=== PATIENT | female | born 1935 | race Caucasian/White ===

== ENCOUNTER 2017-04-23 08:11 | Outpatient (CLI) | payer MEDICARE, OTHER ==
--- NOTE | 2017-04-24 12:03 | PET ---
PET CT: HISTORY: 82-year-old female with lymphoma. Exam requested for initial staging. 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 TECHNIQUE: PET scanning with CT attenuation correction was performed from the base of the brain through the prox imal thighs following the intravenous administration of 9.7 mCi F18-FDG in the left antecubital fossa . Imaging was performed after an uptake interval of 67 minutes. COMPARISON: None. CORRELATION: None. FINDINGS: There is diffuse increased FDG uptake in the axial skeleton and the spleen. This may either be due to hematopoietic activity or increased hematopoietic activity or lymphomatous infiltration. There is a hypermetabolic 7.0 mm lymph node in the left posterior triangle of the neck with a Q-SUV o f 23. No hypermetabolic lymph nodes are seen in the mediastinum, hilar regions, axilla, abdomen, pelvis, or inguinal regions. No hypermetabolic liver or adrenal lesions are seen. The CT scan used for attenuation correction demonstrates no evidence of pleural effusions or ascites. There is physiologic activity in the GI and tracts. IMPRESSION: 1. Hypermetabolic left posterior triangle lymph node suspicious for viable tumor. 2. Increased uptake in the spleen and skeleton are either due to hematopoiesis or lymphomatous infil tration. MRI of the thoracolumbar spine with and without IV contrast would be helpful. POS: [facility]
== END 2017-04-23 08:12 | disposition home or self-care (01) ==
LOC: PET 08:11
PROVIDERS: ATTEND Internal Medicine Hematology & Oncology
DX: C85.90 Non-Hodgkin lymphoma, unspecified, unspecified site (principal)
CPT/HCPCS: 78815; 80053; 82248; 83615; 84100; 84550; A9552; 36415

== ENCOUNTER 2017-07-03 08:07 | Outpatient (CLI) | payer MEDICARE, OTHER ==
--- NOTE | 2017-07-03 11:26 | PET ---
PET CT: HISTORY: 82-year-old female with lymphoma. Last chemotherapy was on 06/16/17. Exam requested for restaging. TECHNIQUE: PET scanning with CT attenuation correction was performed from the base of the brain through the prox imal thighs following the intravenous administration of 13 mCi F18-FDG in the left antecubital fossa. Imaging was performed after an uptake interval of 53 minutes. COMPARISON: PET CT dated 04/23/17. FINDINGS: There has been interval resolution of dominga hypermetabolism in the left posterior triangle of the nec k. No dominga hypermetabolism seen in neck, chest, axilla, abdomen, pelvis, or inguinal regions (Deauvi lle score 1). No hypermetabolic liver or adrenal lesions are seen. There is increased FDG localization in a new focal mass-like area of consolidation in the anterior as pect of right upper lobe with a SUV of 9 (uptake greater than the liver). Though this is a new area o f uptake, it is unlikely to be related to lymphoma with a Deauville score X. However, if this is foun d to be lymphoma, then the Deauville score would be 5. There is physiologic activity in the GI and tracts, and the visualized portions of the brain. Incr eased activity in the axial skeleton and spleen has resolved. The CT scan used for attenuation correction demonstrates no evidence of pleural effusions or ascites. In addition to the focal area of mass-like consolidation in the right upper lobe, there are patchy n odular infiltrates in the right upper lobe. IMPRESSION: 1. No dominga hypermetabolism on the current exam, with interval resolution since the previous study o f 04/23/17. 2. New abnormal FDG localization in a mass-like area of consolidation in right upper lobe. Please se e above discussion. POS: [facility]
== END 2017-07-03 08:08 | disposition home or self-care (01) ==
LOC: PET 08:07
PROVIDERS: ATTEND Internal Medicine Hematology & Oncology
DX: C85.90 Non-Hodgkin lymphoma, unspecified, unspecified site (principal); R91.8 Other nonspecific abnormal finding of lung field
CPT/HCPCS: 78815; A9552

== ENCOUNTER 2017-09-03 12:29 | Outpatient (CLI) | payer MEDICARE ==
--- NOTE | 2017-09-03 13:16 | RAD ---
PA AND LATERAL CHEST: HISTORY: An 82-year-old female with a history of dyspnea. FINDINGS: Left subclavian catheter injection port. Heart size within normal limits. Increased interstitial an d reticulonodular parenchymal changes in the right upper lobe have more the appearance of old changes . Mild right hemidiaphragm elevation. No confluent pneumonia, overt edema, or pleural effusion. IMPRESSION: 1. No significant acute intrathoracic disease. 2. Minimal bilateral chronic appearing changes. POS: [facility]
== END 2017-09-03 12:30 | disposition home or self-care (01) ==
LOC: RAD 12:29
PROVIDERS: ATTEND Internal Medicine Critical Care Medicine
DX: R06.00 Dyspnea, unspecified (principal)
CPT/HCPCS: 71046

== ENCOUNTER 2017-09-16 10:47 | Outpatient (CLI) | payer MEDICARE ==
--- NOTE | 2017-09-16 15:46 | PET ---
PET SCAN WITH CT ATTENUATION CORRECTION: HISTORY: 82-year-old female with left nasal skin basal cell carcinoma, left temporal superficial basal cell ca rcinoma, and lymphoma. Examination requested for restaging. Patient has undergone recent chemotherapy . COMPARISON: 07/03/17. TECHNIQUE: PET scanning with CT attenuation correction is performed from the base of the brain to the proximal t highs following the intravenous administration of 12.3 mCi F18-FDG. FINDINGS: HEAD/NECK: No abnormal FDG localization. CHEST: Redemonstration of FDG avidity involving focal consolidation in the right upper lobe. Currently, the SUV is 4.5 (previously 7.0). Additional areas of FDG avidity are noted in the right upper lobe and mi ddle lobe, respectively, with maximum SUVs between 1.7 and 2.4, respectively. The FDG avidity in the middle lobe has developed since the prior examination. There are also new areas of parenchymal opacit y with FDG avidity involving the posterior right lower lobe with a maximum SUV of 3.9. ABDOMEN/PELVIS: No abnormal FDG localization. OSSEOUS STRUCTURES: No abnormal FDG localization. IMPRESSION: Interval decrease in FDG avidity involving a focal opacification in the right upper lobe. There is in terval development of FDG avidity in the middle lobe and right lower lobe. Given interval development , the Deauville criteria is X (with the assumption that this is not due to lymphoma but rather an inf ectious or inflammatory process). If these sites do garment turner to be lymphomatous, then they would have a Deauville criteria of 5A. POS: [facility]
== END 2017-09-16 10:48 | disposition home or self-care (01) ==
LOC: PET 10:47
PROVIDERS: ATTEND Internal Medicine Hematology & Oncology
DX: C83.31 Diffuse large B-cell lymphoma, lymph nodes of head, face, and neck (principal)
CPT/HCPCS: 78815; A9552

== ENCOUNTER 2017-10-16 10:26 | Outpatient (CLI) | payer MEDICARE, OTHER ==
--- NOTE | 2017-10-16 11:37 | RAD ---
PA AND LATERAL CHEST X-RAY: 10/16/2017 HISTORY: Dyspnea. COMPARISON: 09/03/2017 FINDINGS: A left subclavian Mediport catheter remains unchanged in position. The cardiac silhouette is at the upper limits of normal in size. The pulmonary vasculature is within normal limits. There are linear interstitial densities in the right mid lung zone, which are also seen on a prior study. Prior PET CT examination demonstrates reticulonodular densities in this region, with increased uptake, and may be related to an infectious or inflammatory process. There is also a nodular density seen at the rig ht lung base that was not seen on prior chest x-ray. The left lung is clear. There is no pleural ef fusion present. Vascular calcification is seen in the thoracic aorta. No other interval change. IMPRESSION: Increased interstitial opacities, right mid lung zone, with nodular interstitial density in the right lung base. These findings may be related to infectious or inflammatory process, which was noted on PET CT exam on 09/16/2017. Followup to complete resolution is recommended. POS: [facility]
== END 2017-10-16 10:27 | disposition home or self-care (01) ==
LOC: RAD 10:26
PROVIDERS: ATTEND Internal Medicine Critical Care Medicine
DX: R06.00 Dyspnea, unspecified (principal); J98.4 Other disorders of lung; R91.8 Other nonspecific abnormal finding of lung field
CPT/HCPCS: 71046

== ENCOUNTER 2017-11-12 10:01 | Outpatient (CLI) | payer MEDICARE, OTHER ==
--- NOTE | 2017-11-12 12:00 | CT ---
CT CHEST WITHOUT CONTRAST: HISTORY: Pulmonary infiltrate followup. B cell lymphoma. COMPARISON: PET CT from 09/16/2017. FINDINGS: Absence of IV contrast reduces the sensitivity of the exam, particularly for evaluation of mediastina l, hilar, and axillary structures. There has been mild interval improvement in the patchy spinal canal stenosis in the medial segment of the right middle lobe. Subsegmental atelectatic changes in the lingula are again noted. The patchy reticulonodular infiltrates in the upper lobes (right greater than left) are essentially stable. No pleural or pericardial effusions are seen. No evidence of aneurysmal dilatation of the thoracic aor ta is identified. There are degenerative changes in the spine. IMPRESSION: Mild interval improvement since 09/16/2017. POS: [facility]
== END 2017-11-12 10:02 | disposition home or self-care (01) ==
LOC: CT 10:01
PROVIDERS: ATTEND Internal Medicine Critical Care Medicine
DX: C85.10 Unspecified B-cell lymphoma, unspecified site (principal); R91.8 Other nonspecific abnormal finding of lung field
CPT/HCPCS: 71250

== ENCOUNTER 2018-07-07 10:26 | Outpatient (CLI) | payer MEDICARE, OTHER ==
[~2018-07-07 10:26] MED LIST: ISOVUE-370 76%-LOCM 1 ML ONE
--- NOTE | 2018-07-07 12:32 | CT ---
CT OF CHEST PERFORMED WITH INTRAVENOUS CONTRAST ENHANCEMENT: 07/07/18 HISTORY: Patient has history of B-cell lymphoma with left neck biopsy and chemotherapy last year. COMPARISON: CT study of 11/12/17. The parenchymal lung changes in the posterior segment of the right upper lobe show more of a tree-in- bud nodularity. It is slightly improved as compared to the prior examination. These changes are along the major fissure. There is also some parenchymal changes within the anterior segment which also has a slight tree-in-bud nodularity and are stable. Changes in the anterior segment of the left upper lo be more in the anterior recess region are also unchanged. The parenchymal lung changes with traction bronchiectasis seen in the lingula and right middle lobe are stable. The foci of tree-in-bud nodulari ty in the right lower lobe are also unchanged. Overall the improvement is minimal. No significant mediastinal, hilar, or axillary lymphadenopathy. The visualized liver parenchyma shows a small hypodensity within the right lobe which may represent a small cyst. Right and left adrenal glands are normal in appearance. There is what appear to be some small gallstones present. IMPRESSION: Minimal overall improvement to the parenchymal lung changes which are mainly related to some areas of tree-in-bud nodularity in both upper and lower lung monique. The only change is perhaps some minimal improvement to some of the changes within the posterior segment of the right upper lobe. The traction bronchiectasis and volume loss changes related to the right and chronic atelectatic appearing change s in the lingula and right middle lobe are stable. No new process noted. POS: [facility]
--- NOTE | 2018-07-07 12:32 | CT ---
CT NECK WITH CONTRAST: Technique: Multiple axial tomograms were obtained through the neck with IV enhancement. Indications: -- cell lymphoma. Comparison: PET CT 09-16-17, PET CT 07-03-17 FINDINGS: Parotid glands, submandibular glands, and thyroid unremarkable. Nasopharynx unremarkable. Oropharynx appears unremarkable. The hypopharynx is unremarkable. Subglottic region shows a mildly dilated proximal esophagus which is air filled. [employer] space, parapharyngeal space, and retropharyngeal space unremarkable. No evidence of adenopathy. Carotid space shows mild atherosclerotic calcification in the proximal int ernal carotid arteries. The upper mediastinum is unremarkable. See CT chest for evaluation of lung monique. Bone windows show prominent degenerative changes in the cervical spine at C5-6 and C6-7. Large plan manager ior osteophyte at C5-6 encroaches into the spinal canal and impinges on the cervical cord. IMPRESSION: 1. No evidence of cervical adenopathy. 2. A large osteophyte at C5-6 impinges on the cervical cord. Correlate for neurological findings. POS: [facility]
== END 2018-07-07 10:27 | disposition home or self-care (01) ==
LOC: BICCT 10:26
PROVIDERS: ATTEND Internal Medicine Critical Care Medicine
DX: C83.31 Diffuse large B-cell lymphoma, lymph nodes of head, face, and neck (principal); J18.9 Pneumonia, unspecified organism; R91.8 Other nonspecific abnormal finding of lung field; M25.78 Osteophyte, vertebrae
CPT/HCPCS: 70491; 71260; Q9966

== ENCOUNTER 2019-08-10 09:57 | Outpatient (CLI) | payer MEDICARE, OTHER ==
--- NOTE | 2019-08-10 11:31 | CT ---
CT CHEST WITHOUT CONTRAST: Date: 08/10/2019 HISTORY: Bronchiectasis. COMPARISON: 07/07/2018. FINDINGS: Bronchiectatic changes in the lingula, right middle lobe, and both lower lobes are again seen, with s table associated parenchymal changes. Patchy scattered areas of tree-in-bud nodularity are again seen bilaterally and remain stable. No pleural or pericardial effusions are seen. No pneumothoraces or lung masses are identified. There are vascular calcifications without evidence of aneurysmal dilatation of the thoracic aorta. Ca lcifications of the leach of the trachea and bronchi are again seen. Upper abdominal tomograms demonstrate cholelithiasis. There is a tiny low density lesion, likely cyst , in the liver. IMPRESSION: Stable findings since 07/07/2018. POS: [facility]
== END 2019-08-10 09:58 | disposition home or self-care (01) ==
LOC: BICCT 09:57
PROVIDERS: ATTEND Internal Medicine Critical Care Medicine
DX: J47.9 Bronchiectasis, uncomplicated (principal)
CPT/HCPCS: 71250

== ENCOUNTER 2020-02-09 08:57 | Outpatient (CLI) | payer MEDICARE, OTHER ==
--- NOTE | 2020-02-09 10:15 | CT ---
CT CHEST WITHOUT CONTRAST: HISTORY: Bronchiectasis. COMPARISON: CT chest 08/10/2019. FINDINGS: Similar appearance of the peripheral bronchiectasis and wall within the right middle lobe along with posterior segment right lower lobe. A few scattered central lobular pulmonary nodules are relatively similar. The round atelectasis along the right minor fissure is similar. Bilateral lower lobe tubular bronchiectasis is similar with peripheral centrilobular pulmonary nodule s which have not significantly progressed. Mild bronchial wall thickening medial basal left lower lo be. Scar formation in the lateral basal left lower lobe is relatively similar. No pneumothorax. No effusion. No airspace consolidation. No significant mediastinal adenopathy. N o pericardial effusion. Cholelithiasis is present. The remainder of the upper abdomen is unremarkab le. Thoracic spine is intact. High-grade degenerative disease at L2-3. Sternum and manubrium are intact. No acute displaced rib fracture. 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 POS: [facility]
== END 2020-02-09 08:58 | disposition home or self-care (01) ==
LOC: BICCT 08:57
PROVIDERS: ATTEND Internal Medicine Critical Care Medicine
DX: J47.9 Bronchiectasis, uncomplicated (principal)
CPT/HCPCS: 71250

== ENCOUNTER 2021-02-05 10:17 | Outpatient (CLI) | payer MEDICARE | END 2021-02-05 10:18 | disposition home or self-care (01) | LOC: BICCT 10:17 | PROVIDERS: ATTEND Internal Medicine Critical Care Medicine | DX: J47.9 Bronchiectasis, uncomplicated (principal) | CPT/HCPCS: 71250 ==

== ENCOUNTER 2022-02-19 09:37 | Outpatient (CLI) | payer MEDICARE | END 2022-02-19 09:38 | disposition home or self-care (01) | LOC: BICCT 09:37 | PROVIDERS: ATTEND Internal Medicine Critical Care Medicine | DX: J47.9 Bronchiectasis, uncomplicated (principal); R91.8 Other nonspecific abnormal finding of lung field; K80.20 Calculus of gallbladder without cholecystitis without obstruction | CPT/HCPCS: 36415; 71250; 80053 ==